=== PATIENT | female | born 1995 | race African-American/Black ===

== ENCOUNTER 2020-03-07 13:25 | Emergency (ER) | payer BC, MEDICAID ==
[~2020-03-07] VITALS: Ht 160 cm; Wt 83.0 kg
[2020-03-07] MEDS ORDERED: ACETAMINOPHEN 325MG TABLET PO ONE (15:15)
[2020-03-07 16:23] VITALS: BP 128/76
== END 2020-03-07 16:24 | disposition home or self-care (01) ==
LOC: ER 13:25
DX: O99.89 Other specified diseases and conditions complicating pregnancy, childbirth and the puerperium (principal); J02.9 Acute pharyngitis, unspecified; K08.89 Other specified disorders of teeth and supporting structures; O26.892 Other specified pregnancy related conditions, second trimester; R03.0 Elevated blood-pressure reading, without diagnosis of hypertension; Z3A.18 18 weeks gestation of pregnancy
CPT/HCPCS: 81025; 87070; 87430; 99283